=== PATIENT | female | born 1950 | race Caucasian/White ===

== ENCOUNTER 2018-11-12 16:02 | Emergency (ER) | payer MEDICARE ==
[~2018-11-12] VITALS: Ht 157.5 cm; Wt 104.8 kg
[2018-11-12] MEDS ORDERED: VITAMIN D-32000 UNIT PO (16:24)
[2018-11-12] MEDS ORDERED: CLARITIN10 MG PO (16:24)
[2018-11-12] MEDS ORDERED: OMEPRAZOLE40 MG PO (16:24)
[2018-11-12] MEDS ORDERED: ASPIR 8181 MG PO (16:24)
[2018-11-12] MEDS ORDERED: CRESTOR20 MG PO (16:25)
[2018-11-12] MEDS ORDERED: LEXAPRO20 MG PO (16:25)
[2018-11-12] MEDS ORDERED: LYRICA 50 MG50 MG PO (16:25)
[2018-11-12] MEDS ORDERED: REQUIP 0.25 M0.25 MG PO (16:26)
[2018-11-12] MEDS ORDERED: HYDROXYCHLOROQ200 M1 PO (16:26)
[2018-11-12] MEDS ORDERED: NEURONTIN 300300 M1 PO (16:26)
[2018-11-12] MEDS ORDERED: COUMADIN 4 MG TA4 M1 PO (16:27)
[2018-11-12] MEDS ORDERED: LASIX 20 MG TAB20 MG PO ×2 (16:27→19:07)
[2018-11-12 16:35] LABS: ABSOLUTE BASOPHILS 0.1 thou/uL (0.0-0.2); ABSOLUTE EOSINOPHILS 0.1 thou/uL (0.0-0.7); ABSOLUTE LYMPHOCYTES 1.8 thou/uL (0.8-5.3); ABSOLUTE MONOCYTES 0.7 thou/uL (0.0-1.2); ABSOLUTE NEUTROPHILS 2.6 thou/uL (1.6-8.1); EOSINOPHILS 2.6 %; HEMATOCRIT 38.3 % (37.0-47.0); HEMOGLOBIN 12.3 gm/dL (12.0-15.0); LYMPHOCYTES 34.3 %; MCH 27.4 pg (26.0-34.0); MCV 85.5 fL (80.0-100.0); MONOCYTES 12.5 %; MPV 10.2 fl. (7.2-11.1); NUCLEATED RBCS 0 /100WBC; PLATELET COUNT* 198 thou/uL (150-400); POLYS 49.6 %; RBC 4.48 mil/uL (4.20-5.00); RDW-CV 17.3 % (10.5-14.5); WBC 5.3 thou/uL (4.0-11.0)
[2018-11-12 16:43] LABS: ANION GAP 8 mmol/L (7-16); BUN 16 mg/dL (7-18); CALCIUM 8.8 mg/dL (8.5-10.1); CHLORIDE 106 mmol/L (98-107); CO2 30 mmol/L (21-32); CREATININE 0.7 mg/dL (0.6-1.3); GLUCOSE 88 mg/dL (70-99); POTASSIUM 3.9 mmol/L (3.5-5.1); SODIUM 144 mmol/L (136-145)
[2018-11-12 16:54] LABS: ALBUMIN 3.3 g/dL (3.4-5.0); ALKALINE PHOSPHATASE 153 U/L (46-116); NT-PRO BRAIN NAT PEPTIDE 306 pg/mL (<300); SGOT 58 U/L (15-37); SGPT 46 U/L (30-65); TOTAL BILIRUBIN 0.6 mg/dL (<0.1-1.0); TOTAL PROTEIN 7.4 g/dL (6.4-8.2); TROPONIN-I LEVEL <0.06 ng/mL (<0.06)
[2018-11-12 17:46] LABS: INR 2.7
[2018-11-12] MEDS ORDERED: COMPRESSION TH1 EACH MISCELL (18:36)
[2018-11-12 19:13] VITALS: BP 130/65
--- NOTE | 2018-11-13 10:46 | EKG ---
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1950 Requested By: Ariadna Henry Order Number: [id number] MD: Maurilio De La Rosa Measurements Intervals [place] Rate: 67 P: -32 NE: 160 QRS: -28 QRSD: 118 T: 16 QT: 445 QTc: 470 Interpretive Statements Sinus rhythm Nonspecific intraventricular conduction delay Baseline wander in lead(s) V5 No previous ECG available for comparison Electronically Signed On 11-13-2018 10:46:25 CDT by Maurilio De La Rosa [email or web address] <ELECTRONICALLY SIGNED> By: Maurilio De La Rosa MD, [facility] 11/13/18 1046 1638 1638 Maurilio De La Rosa MD, FACC /EPI
== END 2018-11-12 19:15 | disposition home or self-care (01) ==
LOC: M.ERS 16:02
PROVIDERS: Nurse Practitioner Family
DX: R60.0 Localized edema (principal); M35.00 Sjogren syndrome, unspecified; M32.9 Systemic lupus erythematosus, unspecified; K21.9 Gastro-esophageal reflux disease without esophagitis; E78.5 Hyperlipidemia, unspecified; F32.9 Major depressive disorder, single episode, unspecified; Z86.718 Personal history of other venous thrombosis and embolism; Z91.048 Other nonmedicinal substance allergy status; Z88.8 Allergy status to other drugs, medicaments and biological substances; Z88.6 Allergy status to analgesic agent; Z88.1 Allergy status to other antibiotic agents

== ENCOUNTER 2018-11-26 15:24 | Emergency (ER) | payer MEDICARE ==
[~2018-11-26] VITALS: Ht 157.5 cm; Wt 104.3 kg
[~2018-11-26 15:24] MED LIST: ASPIR 8181 MG PO; CLARITIN10 MG PO; COMPRESSION TH1 EACH MISCELL; COUMADIN 4 MG TA4 M1 PO; CRESTOR20 MG PO; HYDROXYCHLOROQ200 M1 PO; LASIX 20 MG TAB20 MG PO; LEXAPRO20 MG PO; LYRICA 50 MG50 MG PO; NEURONTIN 300300 M1 PO; OMEPRAZOLE40 MG PO; REQUIP 0.25 M0.25 MG PO; VITAMIN D-32000 UNIT PO
[2018-11-26] MEDS ORDERED: BUTENAFINE HCL30 GM TOP (16:28)
[2018-11-26 16:37] VITALS: BP 142/88
== END 2018-11-26 16:37 | disposition home or self-care (01) ==
LOC: M.ERS 15:24
DX: B35.4 Tinea corporis (principal); K21.9 Gastro-esophageal reflux disease without esophagitis; F32.9 Major depressive disorder, single episode, unspecified; E78.5 Hyperlipidemia, unspecified; Z88.5 Allergy status to narcotic agent; Z88.6 Allergy status to analgesic agent; Z88.8 Allergy status to other drugs, medicaments and biological substances; Z86.718 Personal history of other venous thrombosis and embolism

== ENCOUNTER 2018-12-08 16:56 | Emergency (ER) | payer MEDICARE, OTHER, MEDICAID ==
[~2018-12-08] VITALS: Ht 157.5 cm; Wt 105.7 kg
[~2018-12-08 16:56] MED LIST changes: +BUTENAFINE HCL30 GM TOP
[2018-12-08 17:42] LABS: URINE BILIRUBIN NEGATIVE (Negative); URINE BLOOD TRACE (Negative); URINE CLARITY CLEAR; URINE COLOR YELLOW; URINE GLUCOSE-RANDOM NEGATIVE (Negative); URINE KETONES NEGATIVE (Negative); URINE LEUKOCYTES-REFLEX NEGATIVE (Negative); URINE NITRITE-REFLEX NEGATIVE (Negative); URINE PROTEIN NEGATIVE (Negative); URINE UROBILINOGEN 0.2 E.U./dl (0.2-1.0)
[2018-12-08 17:55] LABS: ABSOLUTE BASOPHILS 0.1 thou/uL (0.0-0.2); ABSOLUTE EOSINOPHILS 0.2 thou/uL (0.0-0.7); ABSOLUTE LYMPHOCYTES 1.7 thou/uL (0.8-5.3); ABSOLUTE MONOCYTES 0.8 thou/uL (0.0-1.2); BASOPHILS 0.9 %; EOSINOPHILS 3.2 %; HEMATOCRIT 31.1 % (37.0-47.0); HEMOGLOBIN 10.4 gm/dL (12.0-15.0); LYMPHOCYTES 29.6 %; MCH 28.7 pg (26.0-34.0); MCHC 33.5 g/dL (28.0-37.0); MCV 85.8 fL (80.0-100.0); MONOCYTES 14.7 %; MPV 9.7 fl. (7.2-11.1); NUCLEATED RBCS 0 /100WBC; PLATELET COUNT* 178 thou/uL (150-400); POLYS 51.6 %; RBC 3.63 mil/uL (4.20-5.00); RDW-CV 18.3 % (10.5-14.5); WBC 5.8 thou/uL (4.0-11.0)
[2018-12-08 18:03] LABS: CALCIUM 9.2 mg/dL (8.5-10.1); CREATININE 0.9 mg/dL (0.6-1.3); POTASSIUM 4.6 mmol/L (3.5-5.1)
[2018-12-08 18:14] LABS: ALBUMIN 2.8 g/dL (3.4-5.0); TOTAL BILIRUBIN 0.5 mg/dL (<0.1-1.0); TOTAL PROTEIN 6.5 g/dL (6.4-8.2)
[2018-12-08 19:02] VITALS: BP 120/51
--- NOTE | 2018-12-09 14:29 | EKG ---
[place] [address] ELECTROCARDIOGRAM REPORT Name: CLARA CASTELLANOS Room: 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1950 Requested By: Bridget Fernandes Order Number: [id number] MD: Robin Bonilla Measurements Intervals [place] Rate: 65 P: -42 [place]: 163 QRS: -22 QRSD: 120 T: 29 QT: 440 QTc: 458 Interpretive Statements Sinus rhythm Nonspecific intraventricular conduction delay Compared to ECG 11/12/2018 16:38:20 No significant changes Electronically Signed On 12-09-2018 14:29:26 CDT by Robin Bonilla [email or web address] <ELECTRONICALLY SIGNED> By: Robin Bonilla MD, [facility] 12/09/18 1429 1808 1808 Robin Bonilla MD, FACC /EPI
== END 2018-12-08 19:07 | disposition home or self-care (01) ==
LOC: M.ERS 16:56
PROVIDERS: Nurse Practitioner Family
DX: R60.0 Localized edema (principal); M79.89 Other specified soft tissue disorders; M79.662 Pain in left lower leg; M79.661 Pain in right lower leg; E78.5 Hyperlipidemia, unspecified; K21.9 Gastro-esophageal reflux disease without esophagitis; F32.9 Major depressive disorder, single episode, unspecified; M32.9 Systemic lupus erythematosus, unspecified; Z88.5 Allergy status to narcotic agent; Z86.718 Personal history of other venous thrombosis and embolism; Z91.041 Radiographic dye allergy status; Z88.6 Allergy status to analgesic agent; Z88.8 Allergy status to other drugs, medicaments and biological substances

== ENCOUNTER 2019-03-03 15:13 | Emergency (ER) | payer MEDICARE, OTHER, MEDICAID ==
[~2019-03-03] VITALS: Ht 157.5 cm; Wt 100.2 kg
[2019-03-03] MEDS ORDERED: ZANAFLEX4 MG PO (18:16)
[2019-03-03 18:26] VITALS: BP 111/58
== END 2019-03-03 18:27 | disposition home or self-care (01) ==
LOC: M.ERS 15:13
DX: S29.012A Strain of muscle and tendon of back wall of thorax, initial encounter (principal); S63.591A Other specified sprain of right wrist, initial encounter; S63.592A Other specified sprain of left wrist, initial encounter; S80.02XA Contusion of left knee, initial encounter; S80.01XA Contusion of right knee, initial encounter; S50.02XA Contusion of left elbow, initial encounter; S50.01XA Contusion of right elbow, initial encounter; S40.012A Contusion of left shoulder, initial encounter; S40.011A Contusion of right shoulder, initial encounter; S20.212A Contusion of left front wall of thorax, initial encounter; E78.5 Hyperlipidemia, unspecified; K21.9 Gastro-esophageal reflux disease without esophagitis; M32.9 Systemic lupus erythematosus, unspecified; Z88.5 Allergy status to narcotic agent; Z88.6 Allergy status to analgesic agent; Z86.718 Personal history of other venous thrombosis and embolism; Z91.041 Radiographic dye allergy status; Z88.8 Allergy status to other drugs, medicaments and biological substances; W17.89XA Other fall from one level to another, initial encounter; Y93.89 Activity, other specified; Y92.89 Other specified places as the place of occurrence of the external cause; Y99.8 Other external cause status

== ENCOUNTER 2019-05-16 20:58 | Emergency (ER) | payer MEDICARE, OTHER, MEDICAID ==
[~2019-05-16] VITALS: Ht 157.5 cm; Wt 95.4 kg
[~2019-05-16 20:58] MED LIST changes: +ZANAFLEX4 MG PO
[2019-05-16] MEDS ORDERED: KLOR-CON 10 ER10 MEQ PO (21:15)
[2019-05-16] MEDS ORDERED: COUMADIN 5 MG TA5 M1 PO (21:15)
[2019-05-16 22:27] LABS: INR 1.5; PROTIME 14.8 Seconds (9.20-11.50)
[2019-05-16 22:52] VITALS: BP 119/71
== END 2019-05-16 22:53 | disposition home or self-care (01) ==
LOC: M.ERS 20:58
PROVIDERS: Physician Assistant
DX: S63.592A Other specified sprain of left wrist, initial encounter (principal); S93.692A Other sprain of left foot, initial encounter; M25.512 Pain in left shoulder; M25.522 Pain in left elbow; E78.5 Hyperlipidemia, unspecified; K21.9 Gastro-esophageal reflux disease without esophagitis; M32.9 Systemic lupus erythematosus, unspecified; Z88.5 Allergy status to narcotic agent; Z88.6 Allergy status to analgesic agent; Z88.8 Allergy status to other drugs, medicaments and biological substances; Z86.718 Personal history of other venous thrombosis and embolism; W18.39XA Other fall on same level, initial encounter; Y93.89 Activity, other specified; Y92.89 Other specified places as the place of occurrence of the external cause; Y99.8 Other external cause status

== ENCOUNTER 2019-05-23 16:57 | Emergency (ER) | payer MEDICARE, OTHER, MEDICAID ==
[~2019-05-23] VITALS: Ht 157.5 cm; Wt 94.3 kg
[~2019-05-23 16:57] MED LIST changes: +COUMADIN 5 MG TA5 M1 PO; +KLOR-CON 10 ER10 MEQ PO
[2019-05-23] MEDS ORDERED: NORCO 5-325 TA1 EAC1 PO (18:53)
[2019-05-23 19:23] VITALS: BP 114/64
== END 2019-05-23 19:24 | disposition home or self-care (01) ==
LOC: M.ERS 16:57
DX: M19.032 Primary osteoarthritis, left wrist (principal); M19.042 Primary osteoarthritis, left hand; M32.9 Systemic lupus erythematosus, unspecified; K21.9 Gastro-esophageal reflux disease without esophagitis; E78.5 Hyperlipidemia, unspecified; Z91.041 Radiographic dye allergy status; Z88.5 Allergy status to narcotic agent; Z88.6 Allergy status to analgesic agent; Z88.8 Allergy status to other drugs, medicaments and biological substances; Z86.718 Personal history of other venous thrombosis and embolism

== ENCOUNTER → 2019-06-09 | Outpatient (CLI) | payer MEDICARE, OTHER, MEDICAID ==
[~2019-06-09] MED LIST changes: +NORCO 5-325 TA1 EAC1 PO
== END ==
LOC: M.MRI 08:11
DX: S52.592A Other fractures of lower end of left radius, initial encounter for closed fracture (principal); M19.032 Primary osteoarthritis, left wrist; X58.XXXA Exposure to other specified factors, initial encounter; Y93.89 Activity, other specified; Y92.89 Other specified places as the place of occurrence of the external cause; Y99.8 Other external cause status

== ENCOUNTER 2019-07-03 17:39 | Inpatient (IN) | payer MEDICARE, OTHER, MEDICAID ==
[~2019-07-03] VITALS: Ht 157.5 cm; Wt 92.5 kg
[~2019-07-03 17:39] MED LIST changes: -VITAMIN D-32000 UNIT PO; +VITAMIN D-40010 MCG PO
[2019-07-03 17:44] VITALS: BP 123/60
[2019-07-03 18:24] LABS: ABSOLUTE BASOPHILS 0.1 thou/uL (0.0-0.2); ABSOLUTE EOSINOPHILS 0.1 thou/uL (0.0-0.7); ABSOLUTE LYMPHOCYTES 1.6 thou/uL (0.8-5.3); ABSOLUTE MONOCYTES 1.1 thou/uL (0.0-1.2); ABSOLUTE NEUTROPHILS 6.8 thou/uL (1.6-8.1); BASOPHILS 0.6 %; EOSINOPHILS 0.6 %; HEMATOCRIT 33.1 % (37.0-47.0); HEMOGLOBIN 11.2 gm/dL (12.0-15.0); LYMPHOCYTES 16.7 %; MCH 31.6 pg (26.0-34.0); MONOCYTES 11.5 %; NUCLEATED RBCS 0 /100WBC; PLATELET COUNT* 163 thou/uL (150-400); POLYS 70.6 %; RBC 3.56 mil/uL (4.20-5.00); RDW-CV 14.5 % (10.5-14.5); WBC 9.6 thou/uL (4.0-11.0)
[2019-07-03 18:30] LABS: INR 2.4; PROTIME 23.4 Seconds (9.20-11.50)
[2019-07-03 18:31] LABS: CALCIUM 8.1 mg/dL (8.5-10.1); CREATININE 0.8 mg/dL (0.6-1.3); POTASSIUM 3.3 mmol/L (3.5-5.1)
[2019-07-03 18:42] LABS: ALBUMIN 3.3 g/dL (3.4-5.0); TOTAL BILIRUBIN 1.1 mg/dL (<0.1-1.0); TOTAL PROTEIN 7.2 g/dL (6.4-8.2)
[2019-07-03 19:21] VITALS: BP 110/57
[2019-07-03 20:00] VITALS: BP 108/58
[2019-07-04 01:44] LABS: HEMATOCRIT 29.8 % (37.0-47.0); MCH 31.4 pg (26.0-34.0); MCHC 33.5 g/dL (28.0-37.0); MCV 93.6 fL (80.0-100.0); MPV 10.2 fl. (7.2-11.1); RBC 3.18 mil/uL (4.20-5.00); RDW-CV 14.8 % (10.5-14.5)
[2019-07-04 02:00] LABS: ALBUMIN 2.9 g/dL (3.4-5.0); CALCIUM 7.6 mg/dL (8.5-10.1); CREATININE 0.9 mg/dL (0.6-1.3); MAGNESIUM 1.5 mg/dL (1.8-2.4); PHOSPHORUS* 2.9 mg/dL (2.5-4.9); POTASSIUM 3.2 mmol/L (3.5-5.1)
[2019-07-04 02:36] LABS: URINE BILIRUBIN NEGATIVE (Negative); URINE BLOOD TRACE (Negative); URINE CLARITY CLEAR; URINE COLOR YELLOW; URINE GLUCOSE-RANDOM NEGATIVE (Negative); URINE KETONES NEGATIVE (Negative); URINE LEUKOCYTES-REFLEX NEGATIVE (Negative); URINE PROTEIN NEGATIVE (Negative); URINE UROBILINOGEN 0.2 E.U./dl (0.2-1.0)
[2019-07-04 02:38] LABS: URINE NITRITE-REFLEX POSITIVE (Negative)
[2019-07-04 02:49] LABS: SQUAMOUS 4-10 Moderate /LPF (0-3)
[2019-07-04 02:50] LABS: CASTS None Seen /LPF (None Seen)
[2019-07-04 02:51] LABS: BACTERIA-REFLEX 1-9 Few /HPF (None Seen); CRYSTALS None Seen /LPF (None Seen); URINE RBC 0-2 Rare /HPF (0-2); URINE WBC-REFLEX 6-15 Few /HPF (0-5)
--- NOTE | 2019-07-04 05:00 | NUR ---
ASSUMED PT CARE AT 2000, AOX4, UP SBA. ADMISSION ASSESSMENT CHARTED. MEDS RECONCILED. GET SITUATED TO ROOM. PT COMPLAINS HEADACHE BEGINNING OF THE SHIFT. MEDS GIVEN WITH PARTIAL RELIEF. PT STATE SHE HAS SOA, O2 SUPPLEMENT, NC 2L PLACED. O2 SAT 90'S RA. VSS, HOURLY ROUNDING, CALL LIGHT WITHIN REACH. WILL CONTINUE TO MONITOR
[2019-07-04 07:51] VITALS: BP 95/48
[2019-07-04 15:19] VITALS: BP 92/49
--- NOTE | 2019-07-04 15:21 | NUR ---
CM SPOKE TO THE PT TO DISCUSS HER HOME SITUATION, DISCHARGE PLANNING, AND TO INFORM OF THE ROLE OF CM. PT A&O. PT NORMALLY INDEPENDENT, ACTIVE, AND DRIVES. PT INFORMS THAT SHE NORMALLY USES A CANE TO AMBULATE. PT OWNS WALKER AND A WHEELCHAIR, BUT DOES NOT USE THEM. PT INFORMS THAT SHE HAS USED HH IN THE PAST. PT ALSO INFORMS THAT SHE RESIDES IN [facility], BUT IS HERE GETTING THINGS ARRANGED AT HER MOTHERS HOME SHE HAD PASSSED IN JANUARY. PT PLANS TO RETURN TO HER MOTHERS HOME AT D/C TO FINISH THINFS UP BEFORE SHE RETURN TO HER HOME IN [place]. PT AWAITING RESULTS OF COVID-19 LABS. CM WILL REMAIN AVAILABLE TO ASSIST AND FOLLOW NEEDED.
--- NOTE | 2019-07-04 16:03 | NUR ---
PT REMAINED ALERT AND ORIENTED. PT RESTING IN ROOM. PT C/O HEADACHE, MEDS GIVEN ORDERED. FALL RISK PRECAUTIONS IN PLACE. HOURLY ROUNDING COMPLETED. ELECTROLYTES REPLACED. WILL CONTINUE TO MONITOR.
--- NOTE | 2019-07-04 16:36 | EKG ---
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1950 Requested By: Rupert Hunter Order Number: [id number] MD: Robin Bonilla Measurements Intervals [place] Rate: 78 P: 36 CT: 133 QRS: -22 QRSD: 104 T: 29 QT: 390 QTc: 445 Interpretive Statements Sinus rhythm Borderline left axis deviation Compared to ECG 12/08/2018 18:08:45 Intraventricular conduction delay no longer present Electronically Signed On 07-04-2019 16:34:40 CDT by Robin Bonilla [email or web address] <ELECTRONICALLY SIGNED> By: Robin Bonilla MD, FACC 07/04/19 1634 1817 181 Robin Bonilla MD, [facility] /EPI
[2019-07-04 20:00] VITALS: BP 90/47
[2019-07-05 04:00] VITALS: BP 89/48
--- NOTE | 2019-07-05 05:51 | NUR ---
PT A&O. AFEBRILE, BP SOFT. SAT 97-99% ON 1.5L. MEDS GIVEN ORDERED. UP TO THE BATHROOM WITH CANE. PT EDUCATED ON FALL RISKS BUT REFUSED BED ALARM. HEADACHE MANAGED WITH SCHEDULED TYLENOL. EKG DONE THIS MORNING. WILL CONTINUE TO MONITOR.
[2019-07-05 08:08] VITALS: BP 96/57
[2019-07-05 09:18] LABS: HEMATOCRIT 31.3 % (37.0-47.0); HEMOGLOBIN 10.5 gm/dL (12.0-15.0); MCH 31.5 pg (26.0-34.0); MCHC 33.6 g/dL (28.0-37.0); MCV 93.8 fL (80.0-100.0); RBC 3.33 mil/uL (4.20-5.00); RDW-CV 15.3 % (10.5-14.5); WBC 4.7 thou/uL (4.0-11.0)
[2019-07-05 09:25] LABS: CALCIUM 8.6 mg/dL (8.5-10.1); CREATININE 0.7 mg/dL (0.6-1.3); POTASSIUM 4.1 mmol/L (3.5-5.1)
--- NOTE | 2019-07-05 15:20 | NUR ---
Plan continues to be for Pt to [place] home [place]. Covid still pending. Following.
--- NOTE | 2019-07-05 15:28 | EKG ---
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1950 Requested By: Micki Padilla Order Number: [id number] MD: Adrian Moran Measurements Intervals [place] Rate: 63 P: -37 [place]: 154 QRS: -42 QRSD: 110 T: -90 QT: 430 QTc: 441 Interpretive Statements Sinus rhythm RSR' in V1 or V2, probably normal variant Inferior infarct, age indeterminate Baseline wander in lead(s) V5 Compared to ECG 07/03/2019 18:17:21 RSR' in V1 or V2 now present Myocardial infarct finding now present Electronically Signed On 07-05-2019 15:26:08 CDT by Adrian Moran [email or web address] <ELECTRONICALLY SIGNED> By: Adrian Moran MD, [facility] 07/05/19 1526 0349 0349 Adrian Moran MD, [facility] /EPI
[2019-07-05 17:00] VITALS: BP 104/50
--- NOTE | 2019-07-05 17:05 | NUR ---
pt remained alert and oriented. pt c/o headache, meds given as ordered. pt up to chair for meals. pt weaned off o2. fall risk precautions in place. hourly rounding completed. will continue to monitor.
[2019-07-05 20:30] VITALS: BP 98/46
--- NOTE | 2019-07-06 04:15 | NUR ---
ASSUMED CARE OF PT 07/05/19 AT APPROX 1915. PT A&OX4, ON ROOM AIR, VSS. PT MED/SURG STATUS. NO COMPLAINTS OF PAIN THIS SHIFT. ASSESSMENTS AND HOURLY ROUNDINGS COMPLETE. WILL CONTINUE TO MONITOR.
[2019-07-06 07:29] VITALS: BP 98/46
[2019-07-06 07:54] VITALS: BP 101/52
[2019-07-06] MEDS ORDERED: ACYCLOVIR 200200 MG PO (10:04)
[2019-07-06] MEDS ORDERED: ZOVIRAX5 GM TOP (10:04)
[2019-07-06] MEDS ORDERED: CEFDINIR300 MG PO (10:04)
[2019-07-06] MEDS ORDERED: NORTRIPTYLINE H10 M1 PO (10:04)
[2019-07-06 10:05] LABS: HEMOGLOBIN 10.7 gm/dL (12.0-15.0); MCH 31.4 pg (26.0-34.0); MCHC 33.3 g/dL (28.0-37.0); MCV 94.3 fL (80.0-100.0); MPV 11.3 fl. (7.2-11.1); RBC 3.39 mil/uL (4.20-5.00); WBC 5.6 thou/uL (4.0-11.0)
[2019-07-06 10:17] LABS: ALBUMIN 2.9 g/dL (3.4-5.0); CALCIUM 8.5 mg/dL (8.5-10.1); CREATININE 0.7 mg/dL (0.6-1.3); MAGNESIUM 1.8 mg/dL (1.8-2.4); TOTAL BILIRUBIN 0.6 mg/dL (<0.1-1.0); TOTAL PROTEIN 6.7 g/dL (6.4-8.2)
[2019-07-06 13:21] VITALS: BP 98/46
--- NOTE | 2019-07-06 13:21 | NUR ---
PT REMAINED ALERT AND ORIENTED. PT GIVEN DISCHARGE INFORMATION AND PRESCRIPTIONS. IV REMOVED. PT BELONGINGS GATHERED. PT DENIED ANY FUTHER QUESTIONS OR CONCERNS AT THIS TIME. FALL RISK PRECAUTIONS IN PLACE. HOURLY ROUNDING COMPLETED. PT LEFT VIA WHEELCHAIR WITH NURSING STAFF TO HOME.
== END 2019-07-06 14:21 | disposition home or self-care (01) | DRG 193 ==
LOC: M.ERS 17:39 → M.TBA-ER 18:41 → M.ORTHSURG 18:41 → M.ERS 19:23 → M.ORTHSURG 19:36
PROVIDERS: Family Medicine; Internal Medicine; ADMIT Family Medicine
DX: J15.9 Unspecified bacterial pneumonia (principal); G92 Toxic encephalopathy; E44.1 Mild protein-calorie malnutrition; N39.0 Urinary tract infection, site not specified; M35.00 Sjogren syndrome, unspecified; Z20.828 Contact with and (suspected) exposure to other viral communicable diseases; E78.5 Hyperlipidemia, unspecified; K21.9 Gastro-esophageal reflux disease without esophagitis; I10 Essential (primary) hypertension; M32.9 Systemic lupus erythematosus, unspecified; Z86.718 Personal history of other venous thrombosis and embolism; Z88.8 Allergy status to other drugs, medicaments and biological substances; Z91.048 Other nonmedicinal substance allergy status; Z79.01 Long term (current) use of anticoagulants; Z79.899 Other long term (current) drug therapy; Z68.37 Body mass index [BMI] 37.0-37.9, adult; F41.8 Other specified anxiety disorders

== ENCOUNTER 2019-08-05 14:37 | Emergency (ER) | payer MEDICARE, OTHER, MEDICAID ==
[~2019-08-05] VITALS: Ht 157.5 cm; Wt 93.9 kg
[~2019-08-05 14:37] MED LIST changes: +ACYCLOVIR 200200 MG PO; +CEFDINIR300 MG PO; +NORTRIPTYLINE H10 M1 PO; +ZOVIRAX5 GM TOP
[2019-08-05] MEDS ORDERED: COUMADIN 1MG TAB1 M1 PO (14:56)
[2019-08-05] MEDS ORDERED: LASIX 40 MG TAB40 MG (14:56)
[2019-08-05 15:02] LABS: ABSOLUTE EOSINOPHILS 0.2 thou/uL (0.0-0.7); ABSOLUTE MONOCYTES 0.6 thou/uL (0.0-1.2); ABSOLUTE NEUTROPHILS 4.4 thou/uL (1.6-8.1); BASOPHILS 0.7 %; EOSINOPHILS 2.6 %; HEMATOCRIT 37.1 % (37.0-47.0); HEMOGLOBIN 12.4 gm/dL (12.0-15.0); LYMPHOCYTES 27.6 %; MCH 31.8 pg (26.0-34.0); MCHC 33.4 g/dL (28.0-37.0); MCV 95.2 fL (80.0-100.0); MONOCYTES 8.3 %; MPV 9.6 fl. (7.2-11.1); NUCLEATED RBCS 0 /100WBC; PLATELET COUNT* 179 thou/uL (150-400); POLYS 60.8 %; RDW-CV 14.9 % (10.5-14.5); WBC 7.2 thou/uL (4.0-11.0)
[2019-08-05 15:10] LABS: CALCIUM 8.7 mg/dL (8.5-10.1); CREATININE 0.8 mg/dL (0.6-1.3); POTASSIUM 3.6 mmol/L (3.5-5.1)
[2019-08-05 15:12] LABS: APTT 40.6 Seconds (25.0-31.3); INR 3.8; PROTIME 37.1 Seconds (9.20-11.50)
[2019-08-05 15:23] LABS: ALBUMIN 3.3 g/dL (3.4-5.0); CK-MB MASS 0.5 ng/mL (<0.5-3.6); MAGNESIUM 1.9 mg/dL (1.8-2.4); TOTAL BILIRUBIN 0.4 mg/dL (<0.1-1.0); TOTAL PROTEIN 7.2 g/dL (6.4-8.2)
[2019-08-05] MEDS ORDERED: ZOFRAN ODT4 MG SUBLING (17:12)
[2019-08-05] MEDS ORDERED: NORCO 5-325 TA1 EAC1 PO (17:12)
[2019-08-05 17:21] VITALS: BP 121/61
--- NOTE | 2019-08-06 09:45 | EKG ---
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1950 Requested By: Rupert Hunter Order Number: [id number] MD: Mitch Borden Measurements Intervals [place] Rate: 75 P: 28 [place]: 144 QRS: -23 QRSD: 105 T: 21 QT: 407 QTc: 455 Interpretive Statements Sinus rhythm Borderline left axis deviation Compared to ECG 07/05/2019 03:49:08 Myocardial infarct finding no longer present Electronically Signed On 08-06-2019 9:44:06 CDT by Mitch Borden [email or web address] <ELECTRONICALLY SIGNED> By: Farida Borden MD, [facility] 08/06/19 0944 1444 1444 Farida Borden MD, [facility] /EPI
== END 2019-08-05 17:21 | disposition home or self-care (01) ==
LOC: M.ERS 14:37
PROVIDERS: Family Medicine
DX: R07.89 Other chest pain (principal); R51 Headache; E78.5 Hyperlipidemia, unspecified; K21.9 Gastro-esophageal reflux disease without esophagitis; F32.9 Major depressive disorder, single episode, unspecified; Z86.718 Personal history of other venous thrombosis and embolism; Z91.048 Other nonmedicinal substance allergy status; Z88.6 Allergy status to analgesic agent; Z88.8 Allergy status to other drugs, medicaments and biological substances

== ENCOUNTER 2019-08-14 01:28 | Emergency (ER) | payer MEDICARE, OTHER, MEDICAID ==
[~2019-08-14] VITALS: Ht 157.5 cm; Wt 97.1 kg
[~2019-08-14 01:28] MED LIST changes: +COUMADIN 1MG TAB1 M1 PO; +LASIX 40 MG TAB40 MG; +ZOFRAN ODT4 MG SUBLING
[2019-08-14] MEDS ORDERED: ULTRAM 50MG TAB50 MG PO (03:20)
[2019-08-14 03:27] LABS: ABSOLUTE EOSINOPHILS 0.3 thou/uL (0.0-0.7); ABSOLUTE LYMPHOCYTES 2.1 thou/uL (0.8-5.3); ABSOLUTE MONOCYTES 0.8 thou/uL (0.0-1.2); ABSOLUTE NEUTROPHILS 2.9 thou/uL (1.6-8.1); BASOPHILS 0.7 %; EOSINOPHILS 4.3 %; HEMATOCRIT 35.4 % (37.0-47.0); HEMOGLOBIN 11.8 gm/dL (12.0-15.0); LYMPHOCYTES 34.3 %; MCH 31.8 pg (26.0-34.0); MCHC 33.5 g/dL (28.0-37.0); MCV 94.8 fL (80.0-100.0); NUCLEATED RBCS 0 /100WBC; PLATELET COUNT* 165 thou/uL (150-400); POLYS 47.7 %; RBC 3.73 mil/uL (4.20-5.00); RDW-CV 14.1 % (10.5-14.5)
[2019-08-14 03:40] LABS: CALCIUM 8.1 mg/dL (8.5-10.1); CREATININE 0.7 mg/dL (0.6-1.3); POTASSIUM 3.9 mmol/L (3.5-5.1)
[2019-08-14 03:42] LABS: INR 2.4; PROTIME 24.2 Seconds (9.20-11.50)
[2019-08-14 03:45] LABS: ALBUMIN 3.2 g/dL (3.4-5.0); TOTAL BILIRUBIN 0.3 mg/dL (<0.1-1.0); TOTAL PROTEIN 6.7 g/dL (6.4-8.2)
[2019-08-14 04:18] VITALS: BP 101/60
== END 2019-08-14 04:19 | disposition home or self-care (01) ==
LOC: M.ERS 01:28
PROVIDERS: Personal Emergency Response Attendant
DX: S40.011A Contusion of right shoulder, initial encounter (principal); K21.9 Gastro-esophageal reflux disease without esophagitis; E78.5 Hyperlipidemia, unspecified; F32.9 Major depressive disorder, single episode, unspecified; Z86.718 Personal history of other venous thrombosis and embolism; Z96.651 Presence of right artificial knee joint; Z88.5 Allergy status to narcotic agent; Z88.6 Allergy status to analgesic agent; Z88.8 Allergy status to other drugs, medicaments and biological substances; Z79.899 Other long term (current) drug therapy; Z79.84 Long term (current) use of oral hypoglycemic drugs; W01.0XXA Fall on same level from slipping, tripping and stumbling without subsequent striking against object, initial encounter; Y93.89 Activity, other specified; Y92.89 Other specified places as the place of occurrence of the external cause; Y99.8 Other external cause status